=== PATIENT | male | born 1945 | race American Indian/Alaskan Native ===

== ENCOUNTER 2017-04-18 07:16 | Outpatient (CLI) | payer MEDICARE ==
[2017-04-18 08:06] LABS: Blood Urea Nitrogen 15 mg/dL (9-20)
--- NOTE | 2017-04-18 18:58 | Magnetic Resonance Report ---
MR scan of the cranium was performed without contrast. Pulse sequences included: 1. T1 weighted sagittal and axial images without contrast 2. T2 weighted axial and coronal images 3. FLAIR axial images 4. Diffusion-weighted axial images 5. Apparent diffusion coefficient images Views of the posterior fossa showed a normal craniocervical junction. Cerebellar pontine angles were normal with normal seventh-eighth nerve complexes. Brainstem and cerebellum were normal. The ventricular system showed mild enlargement but no distortion. Images of the hemispheres showed mild white matter changes in the periventricular regions. There were left and right parietal cortical areas of increased signal consistent with infarct. No corresponding DWI lesions were seen. Moderate biparietal atrophy was present. Some enlargement of the Sylvian fissures was also seen. Sinuses, flow voids in the [place], orbits, pituitary and basal ganglia were normal. Impression: Abnormal MR scan of the cranium without contrast. 1. biparietal infarcts 2. atrophy, araiosis and hydrocephalus
== END 2017-04-18 07:17 | disposition home or self-care (01) ==
LOC: MRI 07:16
PROVIDERS: ATTEND Specialist
DX: I63.9 Cerebral infarction, unspecified (principal); G96.0 Cerebrospinal fluid leak; G91.9 Hydrocephalus, unspecified; G31.89 Other specified degenerative diseases of nervous system; R93.8 Abnormal findings on diagnostic imaging of other specified body structures
CPT/HCPCS: 36415; 70551; 82565; 84520